=== PATIENT | female | born 1990 | race Caucasian/White ===

== ENCOUNTER 2023-03-06 11:58 | Outpatient (CLI) | payer OTHER ==
[2023-03-06] MEDS ORDERED: iohexoL 240 mgI/mL, 50 ML INFUS..BTL IV ONE (12:09)
== END 2023-03-06 19:00 | disposition home or self-care (01) ==
LOC: SRD 11:58
PROVIDERS: ATTEND Specialist
DX: N92.6 Irregular menstruation, unspecified (principal)
CPT/HCPCS: 74740; 58340; Q9966; C1751